=== PATIENT | male | born 1995 | race Two or more races ===

== ENCOUNTER 2022-01-01 07:02 | Emergency (ER) | payer BC ==
[~2022-01-01] VITALS: Ht 175.3 cm; Wt 63.5 kg
[2022-01-01] MEDS ORDERED: ORPHENADRINE C100 MG PO (10:20)
[2022-01-01] MEDS ORDERED: KETO10TA2 PO (10:20)
[2022-01-01] MEDS ORDERED: AMOX-CLAV 875-1 EAC1 PO (10:20)
[2022-01-01] MEDS ORDERED: PEPCID AC20 MG PO (10:20)
== END 2022-01-01 10:52 ==
LOC: ER 07:02
DX: S81.012A Laceration without foreign body, left knee, initial encounter (principal); S00.33XA Contusion of nose, initial encounter; S09.8XXA Other specified injuries of head, initial encounter; S99.822A Other specified injuries of left foot, initial encounter; W05.2XXA Fall from non-moving motorized mobility scooter, initial encounter; Y93.89 Activity, other specified; Y92.89 Other specified places as the place of occurrence of the external cause